=== PATIENT | male | born 1985 | race Caucasian/White ===

== ENCOUNTER 2019-01-01 13:09 | Emergency (ER) | payer OTHER ==
--- NOTE | 2019-01-01 13:53 | EDM.PDOC ---
ED HPI GENERAL MEDICAL PROBLEM - General Chief Complaint: Genitourinary Problem Stated Complaint: SPOKE TO NURSE Time Seen by Provider: 01/01/19 13:53 Source of Information: Reports: Patient History Limitations: Reports: No Limitations - History of Present Illness INITIAL COMMENTS - FREE TEXT/NARRATIVE: HISTORY AND PHYSICAL: History of present illness: Patient is a 33-year-old male presents to the ED with concern for herpes. He states his girlfriend was recently in and diagnosed with herpes. He states he's had some lesions on his penis that he noticed 4 days ago. He states they were painful at first. He denies blistering or pustules. He denies fevers, chills, dysuria, abdominal pain. Review of systems: As per history of present illness and below otherwise all systems reviewed and negative. Past medical history: As per history of present illness and as reviewed below otherwise noncontributory. Surgical history: As per history of present illness and as reviewed below otherwise noncontributory. Social history: No reported history of drug or alcohol abuse. Family history: As per history of present illness and as reviewed below otherwise noncontributory. Physical exam: General: Patient sitting comfortably in no acute distress and nontoxic appearing HEENT: Atraumatic, normocephalic, pupils reactive, negative for conjunctival pallor or scleral icterus, mucous membranes moist, throat clear, neck supple, nontender, trachea midline. No meningeal signs. Lungs: Clear to auscultation, breath sounds equal bilaterally, chest nontender. Heart: S1S2, regular, negative for clicks, rubs, or overt murmur. Abdomen: Soft, nondistended, nontender. Negative for masses or hepatosplenomegaly. Negative for costovertebral tenderness. No rigidity, rebound , guarding. Pelvis: Stable nontender. Genitourinary: Skin colored papules on the penile shaft with 2 opened without erythema or drainage. Rectal: Deferred. Extremities: Atraumatic, negative for cords or calf pain. Neurovascular unremarkable. Neuro: Awake, alert, oriented. Cranial nerves II through XII unremarkable. Cerebellum unremarkable. Motor and sensory unremarkable throughout. Exam nonfocal. Notes: Diagnostics: HSV culture Therapeutics: Prescriptions: Acyclovir Impression: Penile lesions Plan: 1. Take medication as instructed 2. Follow up with primary care provider 3. Return to ED as needed as discussed Definitive disposition and diagnosis as appropriate pending reevaluation and review of above. - Related Data Allergies Allergy/AdvReac Type Severity Reaction Status Date / Time No Known Allergies Allergy Verified 01/01/19 13:34 Home Meds: Home Meds Acyclovir [Zovirax] 400 mg PO TID #21 tablet 01/01/19 [Rx] Past Medical History - Past Health History Medical/Surgical History: Denies Medical/Surgical History HEENT History: Reports: None Cardiovascular History: Reports: None Respiratory History: Reports: None Gastrointestinal History: Reports: None Genitourinary History: Reports: None Musculoskeletal History: Reports: None Neurological History: Reports: None Psychiatric History: Reports: None Endocrine/Metabolic History: Reports: None Hematologic History: Reports: None Immunologic History: Reports: None Oncologic (Cancer) History: Reports: None Dermatologic History: Reports: None - Infectious Disease History Infectious Disease History: Reports: None - Past Surgical History Head Surgeries/Procedures: Reports: None Musculoskeletal Surgical History: Reports: Other (See Below) Other Musculoskeletal Surgeries/Procedures:: Ankle surgery Social & Family History - Family History Family Medical History: Noncontributory - Tobacco Use Smoking Status *Q: Current Every Day Smoker Years of Tobacco use: 10 Packs/Tins Daily: 1 - Caffeine Use Caffeine Use: Reports: Coffee, Tea - Alcohol Use Days Per Week of Alcohol Use: 7 Number of Drinks Per Day: 5 Total Drinks Per Week: 35 - Recreational Drug Use Recreational Drug Use: No ED ROS GENERAL - Review of Systems Review Of Systems: ROS reveals no pertinent complaints other than HPI. ED EXAM, RENAL/ - Physical Exam Exam: See Below (see dictation) Course - Vital Signs Last Recorded V/S: Last Vital Signs Temp 97.7 F 01/01/19 13:31 Pulse 100 01/01/19 13:31 Resp 18 01/01/19 13:31 BP 146/104 H 01/01/19 13:31 Pulse Ox 98 01/01/19 13:31 Departure - Departure Time of Disposition: 13:59 Disposition: Home, Self-Care 01 Condition: Good Clinical Impression: Penile lesion - Discharge Information Prescriptions: Acyclovir [Zovirax] 400 mg PO TID #21 tablet Instructions: Genital Herpes Referrals: PCP,Unknown [Primary Care Provider] - Forms: ED Department Discharge Additional Instructions: The following information is given to patients seen in the emergency department who are being discharged to home. This information is to outline your options for follow-up care. We provide all patients seen in our emergency department with a follow-up referral. The need for follow-up, as well as the timing and circumstances, are variable depending upon the specifics of your emergency department visit. If you don't have a primary care physician on staff, we will provide you with a referral. We always advise you to contact your personal physician following an emergency department visit to inform them of the circumstance of the visit and for follow-up with them and/or the need for any referrals to a consulting specialist. The emergency department will also refer you to a specialist when appropriate. This referral assures that you have the opportunity for follow-up care with a specialist. All of these measure are taken in an effort to provide you with optimal care, which includes your follow-up. Under all circumstances we always encourage you to contact your private physician who remains a resource for coordinating your care. When calling for follow-up care, please make the office aware that this follow-up is from your recent emergency room visit. If for any reason you are refused follow-up, please contact the [facility] Emergency Department at and asked to speak to the emergency department charge nurse. [facility] [address] [place] [address] [id number] [address] [address] 1. Take medication as instructed 2. Follow up with primary care provider 3. Return to ED as needed as discussed
[2019-01-01 14:11] VITALS: BP 163/94
== END 2019-01-01 14:11 | disposition home or self-care (01) ==
LOC: MW.ED 13:09
DX: N48.29 Other inflammatory disorders of penis (principal); F17.210 Nicotine dependence, cigarettes, uncomplicated
CPT/HCPCS: 87529; 99282

== ENCOUNTER 2021-04-13 08:35 | Emergency (ER) | payer SELFPAY ==
[2021-04-13] MEDS ORDERED: Acetaminophen/HYDROcodone 325-5 MG Tab PO ONE (10:05)
[2021-04-13] MEDS ORDERED: Lidocaine 2% Viscous Solution 15 ML Cup PO ONE (10:05)
[2021-04-13] MEDS ORDERED: Benzocaine 20% Topical Spray UD MUCMEM ONE (10:05)
[2021-04-13] MEDS ORDERED: Penicillin V Potassium 500 MG Tab PO STA (10:08)
--- NOTE | 2021-04-13 10:13 | EDM.PDOC ---
ED HPI GENERAL MEDICAL PROBLEM - General Chief Complaint: ENT Problem Stated Complaint: TOOTH PAIN Time Seen by Provider: 04/13/21 09:59 Source of Information: Reports: Patient History Limitations: Reports: No Limitations - History of Present Illness INITIAL COMMENTS - FREE TEXT/NARRATIVE: HISTORY AND PHYSICAL: History of present illness: The patient is a 36-year-old male who presents to the emergency department for complaints of a right posterior broken molar for 3 to 4 months. The patient states that his new dental insurance takes effect the first of the month. He states that this round of pain started at around 2 PM yesterday. He is unable to eat or sleep. The patient states that he has been just taking some Tylenol for the pain. Patient is otherwise healthy no other complaints. Patient denies any fever, chills, headache, change in vision, syncope or near syncope. Denies any chest pain, back pain, shortness of breath or cough. Denies any abdominal pain, nausea, vomiting, diarrhea, constipation or dysuria. Has not noted any blood in urine or stool. Patient has been eating and drinking appropriately. Review of systems: As per history of present illness and below otherwise all systems reviewed and negative. Past medical history: As per history of present illness and as reviewed below otherwise noncontributory. Surgical history: As per history of present illness and as reviewed below otherwise noncontributory. Social history: See social history for further information Family history: As per history of present illness and as reviewed below otherwise noncontributory. Physical exam: General: Well developed and well nourished. Alert and orientated x 3. Nontoxic in appearance and in no acute distress. Vital signs are stable and have been reviewed by me. Nursing notes were reviewed. HEENT: Atraumatic, normocephalic, pupils equal and reactive bilaterally, negative for conjunctival pallor or scleral icterus, mucous membranes moist, TMs normal bilaterally, throat clear, neck supple, nontender, trachea midline. No drooling or trismus noted. No meningeal signs. No hot potato voice noted. Teeth #29, #30, #30 are broken with #30 broken at the gumline. Dictation is showing erythema and tenderness. Lungs: Clear to auscultation bilaterally. No wheezes, rales, or rhonchi. Chest nontender. Normal work of breathing, no accessory muscles used. Heart: S1S2, regular rate and rhythm without overt murmur, gallops, or rubs. No JVD. No peripheral edema Abdomen: Soft, nondistended, nontender. Normoactive bowel sounds. Negative for masses or costovertebral tenderness. Skin: Intact, warm, dry. No lesions or rashes noted. Hematologic: No petechiae or purpra. Mucosa appropriate color and normal nail bed color and refill. Extremities: Atraumatic, moves all extremities per self without difficulty or deficits, negative for cords or calf pain. Neurovascular unremarkable. Neuro: Awake, alert, oriented. Cranial nerves II through XII unremarkable. Cerebellum unremarkable. Motor and sensory unremarkable throughout. Exam nonfocal. Psychiatric: Mood and affect are appropriate. Normal thought process. Answering questions appropriately. Notes: *This patient was seen and evaluated during the 2019 SARS-CoV-2 novel coronavirus pandemic period. Community viral transmission is ongoing at time of this encounter and the emergency department is operating under pandemic response procedures. As stated above the patient is a 36-year-old male who presents with complaints of right posterior molar pain that started yesterday around 2 PM. Patient has had several episodes of dental pain and infection due to the inability to get his broken teeth repaired. The patient states that his dental insurance does take effect on the first of the month and he hopes to get a dentist. I offered to do a dental block and the patient refused. I offered Toradol injection and the patient again refused. I offered a dental ball and [place] and the patient accepted. I will prescribe penicillin VK 500 mg p.o. every 8 hourly for 10 days. I will also give the patient [place] 325/5 mg every 4 hours for pain. The patient is agreeable with this plan. I have talked with the patient about today's findings, in addition to providing specific details for plan of care. Reassessment at the time of disposition demonstrates that the patient is in no acute distress. The patient is stable for discharge, counseling was provided and we discussed in great detail signs and symptoms that would prompt them to return to the Emergency Department. Medication, follow up and supportive care measures were reviewed and discussed. Voices understanding and is agreeable to plan of care. Denies any further questions or concerns at this time. Therapeutics: [place], dental ball, penicillin VK 500 mg Prescription: Pen-Vee K 500 mg p.o. every 8 hours for 10 days, [place] 325/5 mg every 4 hours Impression: Dental caries Plan: 1. You were evaluated today on an emergent basis. Your dental pain was evaluated and found to have an infection around your several broken teeth on the right back jaw. We treated your pain in the emergency room with a dental ball [place]. You refused a dental block for pain control. He also refused a Toradol injection for pain control. I did explain that I would not be able to totally get you out of pain. Your infection was treated with penicillin VK 500 mg in the emergency department I have prescribed you penicillin VK 500 mg every 8 hours for 10 days. This was sent to [facility]. I also prescribed [place] 325/5 mg 1 by mouth every 4 hours for pain. This is a narcotic and you cannot drive or operate machinery while taking this. This can also cause constipation as I advise you to use a stool softener with this. 2. You can alternate Tylenol and ibuprofen as needed for pain and fever management. 3. We encourage you to follow up with your primary care provider and/or recommended specialist in the next few days for re-evaluation and further care/management. 4. If your symptoms should worsen, new symptoms develop or any of the signs and symptoms we discussed should arise please return to the emergency room or call 911 (if needed). Definitive disposition and diagnosis as appropriate pending reevaluation and review of above. tooth Pain Score (Numeric/FACES): 10 - Related Data Allergies Allergy/AdvReac Type Severity Reaction Status Date / Time No Known Allergies Allergy Verified 04/13/21 09:08 Home Meds: Home Meds Penicillin V Potassium 500 mg PO Q8HR #30 tab 04/13/21 [Rx] Past Medical History - Past Health History Medical/Surgical History: Denies Medical/Surgical History HEENT History: Reports: None Cardiovascular History: Reports: None Respiratory History: Reports: None Gastrointestinal History: Reports: None Genitourinary History: Reports: None Musculoskeletal History: Reports: None Neurological History: Reports: None Psychiatric History: Reports: None Endocrine/Metabolic History: Reports: None Hematologic History: Reports: None Immunologic History: Reports: None Oncologic (Cancer) History: Reports: None Dermatologic History: Reports: None - Infectious Disease History Infectious Disease History: Reports: None - Past Surgical History Head Surgeries/Procedures: Reports: None Musculoskeletal Surgical History: Reports: Other (See Below) Other Musculoskeletal Surgeries/Procedures:: Ankle surgery Social & Family History - Family History Family Medical History: No Pertinent Family History - Caffeine Use Caffeine Use: Reports: Coffee, Tea ED ROS ENT - Review of Systems Review Of Systems: Comprehensive ROS is negative, except as noted in HPI. ED EXAM, ENT - Physical Exam Exam: See Below (See dictation) Course - Vital Signs Last Recorded V/S: Last Vital Signs Temp 97.0 F 04/13/21 09:04 Pulse 84 04/13/21 10:20 Resp 18 04/13/21 10:20 BP 145/89 H 04/13/21 10:20 Pulse Ox 95 04/13/21 10:20 - Orders/Labs/Meds Meds: Medications Discontinued Medications Generic Name Dose Route Start Last Admin Trade Name Freq PRN Reason Stop Dose Admin Hydrocodone Bitart/Acetaminophen 1 tab 04/13/21 10:05 04/13/21 10:29 Acetaminophen/Hydrocodone 325-5 Mg Tab PO 04/13/21 10:06 1 tab ONETIME ONE Administration Benzocaine 2 each 04/13/21 10:05 04/13/21 10:29 Benzocaine 20% Topical [place] Ud MUCMEM 04/13/21 10:06 2 each ONETIME ONE Administration Lidocaine HCl 15 ml 04/13/21 10:05 04/13/21 10:29 Lidocaine 2% Viscous Solution 15 Ml Cup PO 04/13/21 10:06 15 ml ONETIME ONE Administration Penicillin V Potassium 500 mg 04/13/21 10:08 04/13/21 10:29 Penicillin V Potassium 500 Mg Tab PO 04/13/21 10:09 500 mg ONETIME STA Administration Departure - Departure Time of Disposition: 10:13 Disposition: Home, Self-Care 01 Condition: Good Clinical Impression: Dental caries, Pain, dental - Discharge Information *PRESCRIPTION DRUG MONITORING PROGRAM REVIEWED*: No *COPY OF PRESCRIPTION DRUG MONITORING REPORT IN PATIENT WIN: No Prescriptions: Penicillin V Potassium 500 mg PO Q8HR #30 tab Instructions: Dental Pain, Dental Caries, Adult Referrals: PCP,None [Primary Care Provider] - Forms: ED Department Discharge Additional Instructions: The following information is given to patients seen in the emergency department who are being discharged to home. This information is to outline your options for follow-up care. We provide all patients seen in our emergency department with a follow-up referral. The need for follow-up, as well as the timing and circumstances, are variable depending upon the specifics of your emergency department visit. If you don't have a primary care physician on staff, we will provide you with a referral. We always advise you to contact your personal physician following an emergency department visit to inform them of the circumstance of the visit and for follow-up with them and/or the need for any referrals to a consulting specialist. The emergency department will also refer you to a specialist when appropriate. This referral assures that you have the opportunity for follow-up care with a specialist. All of these measure are taken in an effort to provide you with optimal care, which includes your follow-up. Under all circumstances we always encourage you to contact your private physician who remains a resource for coordinating your care. When calling for follow-up care, please make the office aware that this follow-up is from your recent emergency room visit. If for any reason you are refused follow-up, please contact the [facility] Emergency Department at and asked to speak to the emergency department charge nurse. [facility] [address] [place] [address] [place] [address] Plan: 1. You were evaluated today on an emergent basis. Your dental pain was evaluated and found to have an infection around your several broken teeth on the right back jaw. We treated your pain in the emergency room with a dental ball [place]. You refused a dental block for pain control. He also refused a Toradol injection for pain control. I did explain that I would not be able to totally get you out of pain. Your infection was treated with penicillin VK 500 mg in the emergency department I have prescribed you penicillin VK 500 mg every 8 hours for 10 days. This was sent to [facility]. I also prescribed [place] 325/5 mg 1 by mouth every 4 hours for pain. This is a narcotic and you cannot drive or operate machinery while taking this. This can also cause constipation as I advise you to use a stool softener with this. 2. You can alternate Tylenol and ibuprofen as needed for pain and fever management. 3. We encourage you to follow up with your primary care provider and/or recommended specialist in the next few days for re-evaluation and further care/management. 4. If your symptoms should worsen, new symptoms develop or any of the signs and symptoms we discussed should arise please return to the emergency room or call 911 (if needed). Sepsis Event Note (ED) - Evaluation Sepsis Screening Result: No Definite Risk
[2021-04-13 10:21] VITALS: BP 145/89; PULSE 84
== END 2021-04-13 10:31 | disposition home or self-care (01) ==
LOC: MW.ED 08:35
DX: K02.9 Dental caries, unspecified (principal)
CPT/HCPCS: 99282; A9270; 99283

== ENCOUNTER 2021-09-20 09:57 | Emergency (ER) | payer SELFPAY ==
[2021-09-20] MEDS ORDERED: Benzocaine 20% Topical Spray UD MUCMEM ONE (10:18)
[2021-09-20] MEDS ORDERED: Lidocaine 2% Viscous Solution 15 ML UD PO ONE (10:18)
[2021-09-20 10:40] VITALS: BP 122/77; PULSE 89
== END 2021-09-20 10:42 | disposition home or self-care (01) ==
LOC: MW.ED 09:57
DX: K04.7 Periapical abscess without sinus (principal); Z79.899 Other long term (current) drug therapy
CPT/HCPCS: 99282; A9270; 99283

== ENCOUNTER 2021-10-05 02:50 | Emergency (ER) | payer SELFPAY ==
[2021-10-05 02:59] VITALS: BP 140/85; PULSE 100
== END 2021-10-05 03:07 | disposition home or self-care (01) ==
LOC: MW.ED 02:50
DX: K08.89 Other specified disorders of teeth and supporting structures (principal)
CPT/HCPCS: 99282

== ENCOUNTER 2023-08-03 10:24 | Emergency (ER) | payer BC ==
[2023-08-03 11:22] VITALS: BP 150/88; PULSE 92
[2023-08-03 11:34] LABS: CORONAVIRUS COVID-19 NAA NEGATIVE (NEGATIVE); INFLUENZA A NAA NEGATIVE (NEGATIVE); INFLUENZA B NAA NEGATIVE (NEGATIVE); RESPIRATORY SYNCYTIAL VIR NAA NEGATIVE (NEGATIVE)
== END 2023-08-03 12:11 | disposition home or self-care (01) ==
LOC: MW.ED 10:24
DX: B34.9 Viral infection, unspecified (principal)
CPT/HCPCS: 0241U; 87651; 99284; 99283

== ENCOUNTER 2024-09-01 11:53 | Emergency (ER) | payer BC ==
[2024-09-01 12:57] VITALS: BP 121/64; PULSE 87
[2024-09-01] MEDS: Benzocaine 20% Topical Spray UD MUCMEM ONE (13:42)
[2024-09-01] MEDS: Lidocaine 2% Viscous Solution 15 ML UD PO ONE (13:42)
[2024-09-01] MEDS: Amoxicillin/Clavulanate K 875-125 MG Tab PO ONE (13:42)
== END 2024-09-01 13:45 | disposition left against medical advice (07) ==
LOC: MW.ED 11:53
DX: K08.89 Other specified disorders of teeth and supporting structures (principal); H66.92 Otitis media, unspecified, left ear; F17.210 Nicotine dependence, cigarettes, uncomplicated; Z75.8 Other problems related to medical facilities and other health care
CPT/HCPCS: 99282